=== PATIENT | female | born 1995 ===

== ENCOUNTER 2022-04-18 18:08 | Outpatient (REF) | payer BC, SELFPAY ==
[2022-04-18 19:04] LABS: Abs Immature Grans 0.02 10^3/uL (0.0-0.06); Absolute Basophil Count 0.05 10^3/uL (0.0-0.2); Absolute Eosinophil Count 0.08 10^3/uL (0.0-0.7); Absolute Lymphocyte Count 2.18 10^3/uL (1.2-3.4); Absolute Monocyte Count 0.26 10^3/uL (0.1-0.8); Basophils % 0.6; HCT 41.7 % (36.0-46.0); HGB 14.1 g/dL (11.2-15.7); Immature Grans % 0.3; MCH 31.8 pg (27.0-33.0); MCHC 33.8 % (32.0-36.0); MCV 94 fL (80-95); Monocytes % 3.3; Neutrophils % 66.8; Platelet Count 268 10^3/uL (130-400); RBC 4.44 10^6/uL (3.93-5.22); RDW 12.5 % (11.7-14.6); RDW-SD 43.5 fL; WBC 7.79 10^3/uL (4.4-10.8)
[2022-04-18 19:10] LABS: ALT 21 U/L (14-59); AST 14 U/L (15-37); Albumin 4.1 g/dL (3.4-5.0); Alkaline Phosphatase 37 U/L (46-116); Anion Gap 11.2 mmol/L (3-11); BUN 14 mg/dL (7-18); Bilirubin, Total 0.4 mg/dL (0.2-1.0); CO2 23.8 mmol/L (21.0-32.0); CREATININE 0.9 mg/dL (0.55-1.02); Calculated LDL 79 mg/dL (<100); Chloride 105 mmol/L (98-107); Cholesterol 145 mg/dL (<200); Glucose 84 mg/dL (74-106); HDL Cholesterol 55 mg/dL (40-60); Potassium 3.6 mmol/L (3.5-5.1); Sodium 140 mmol/L (136-145); TSH (W/Ref FT4) 0.72 uIU/mL (0.36-3.74); Total Protein 7.8 g/dL (6.4-8.2); Triglyceride 59 mg/dL (<150)
== END 2022-04-18 18:09 | disposition home or self-care (01) ==
LOC: NCHCN 18:08
PROVIDERS: Visit Provider Physician Assistant
DX: K76.0 Fatty (change of) liver, not elsewhere classified (principal); F41.9 Anxiety disorder, unspecified; F32.9 Major depressive disorder, single episode, unspecified
CPT/HCPCS: 80053; 80061; 84443; 85025